=== PATIENT | male | born 1960 | race Caucasian/White ===

== ENCOUNTER → 2017-03-12 | Outpatient (REF) | payer MEDICARE, MEDICAID ==
[~2017-03-12] MED LIST: CHOL100094 PO; CLI150 PO; DEXT1DRO16 OP; FEN200PT GT; FEN200PT PO; FLU20 PO; FLUO-201 PO; FOL1 PO; LEVE100047 PO; LEVE500 PO; LOR5/325 PO; OMEG-11 PO; PHEN100 PO; PHEN100C88 PO; QUET25TA PO; [UNRECOGNIZED DRUG - CODE]; [UNRECOGNIZED DRUG - CODE] PO; [UNRECOGNIZED DRUG - CODE] PO; [UNRECOGNIZED DRUG - CODE] PO
== END ==
LOC: ZZLCC 20:02
PROVIDERS: ATTEND Family Medicine
DX: G40.909 Epilepsy, unspecified, not intractable, without status epilepticus (principal)
CPT/HCPCS: 80185

== ENCOUNTER → 2017-03-16 | Outpatient (REF) | payer MEDICARE, MEDICAID | LOC: ZZLCC 10:43 | PROVIDERS: ATTEND Family Medicine | DX: E83.52 Hypercalcemia (principal); G40.909 Epilepsy, unspecified, not intractable, without status epilepticus; I10 Essential (primary) hypertension; E78.1 Pure hyperglyceridemia | CPT/HCPCS: 82465; 82947; 83718; 84478 ==

== ENCOUNTER → 2017-05-24 | Outpatient (REF) | payer MEDICARE, MEDICAID ==
[2017-05-24 10:20] LABS: LDL CHOLESTEROL 63 mg/dl
== END ==
LOC: ZZLCC 08:59
PROVIDERS: ATTEND Family Medicine
DX: E78.1 Pure hyperglyceridemia (principal); E83.52 Hypercalcemia; G40.909 Epilepsy, unspecified, not intractable, without status epilepticus
CPT/HCPCS: 80185; 82465; 82947; 83718; 84478

== ENCOUNTER → 2017-09-22 | Outpatient (REF) | payer MEDICARE, MEDICAID | LOC: ZZLCC 16:50 | PROVIDERS: ATTEND Family Medicine | DX: G40.909 Epilepsy, unspecified, not intractable, without status epilepticus (principal) | CPT/HCPCS: 80185 ==

== ENCOUNTER → 2017-12-26 | Outpatient (REF) | payer MEDICARE, MEDICAID | LOC: ZZLCC 11:05 | PROVIDERS: ATTEND Family Medicine | DX: G40.309 Generalized idiopathic epilepsy and epileptic syndromes, not intractable, without status epilepticus (principal) | CPT/HCPCS: 80185 ==

== ENCOUNTER → 2018-01-23 | Outpatient (REF) | payer MEDICARE, MEDICAID | LOC: ZZLCC 19:15 | PROVIDERS: ATTEND Family Medicine | DX: G40.309 Generalized idiopathic epilepsy and epileptic syndromes, not intractable, without status epilepticus (principal) | CPT/HCPCS: 82040; 82247; 82248; 84075; 84155; 84450; 84460 ==

== ENCOUNTER → 2018-08-21 | Outpatient (REF) | payer MEDICARE, MEDICAID | LOC: ZZLCC 18:20 | PROVIDERS: ATTEND Family Medicine | DX: G40.909 Epilepsy, unspecified, not intractable, without status epilepticus (principal) | CPT/HCPCS: 80185 ==